=== PATIENT | male | born 1995 | race Caucasian/White ===

== ENCOUNTER 2017-03-20 14:52 | Inpatient (IN) | payer BC, OTHER ==
[~2017-03-20] VITALS: Ht 177.8 cm; Wt 65.5 kg
[2017-03-20] MEDS ORDERED: ONDANSETRON INJ 2 MG/ML 2 ML VIAL IV STA (15:31)
[2017-03-20] MEDS ORDERED: MoRPHine SULFATE 4 MG/ML 1 ML CARP\\VIAL IV STA ×2 (15:31→17:24)
[2017-03-20 15:59] LABS: URINE APPEARANCE CLEAR (CLEAR); URINE BILIRUBIN NEG (NEG); URINE COLOR YELLOW; URINE NITRITE NEG (NEG); URINE PH 5.5 (4.5-7.5); URINE SPECIFIC GRAVITY 1.023 (1.000-1.030); UROBILINOGEN NEG (NEG); ZZUR CULT IF INDIC CLEAN CATCH NO
[2017-03-20 16:02] LABS: MANUAL MICROSCOPIC REQUIRED? NO; REVIEW REQ? NO
--- NOTE | 2017-03-20 16:02 | EMERGENCY ROOM VISIT NOTE ---
History First contact with patient: 15:22 Chief Complaint: GROIN PAIN Stated Complaint: GROIN PAIN History of Present Illness The patient is a 21 year old male who presents to the Emergency Room via private vehicle accompanied by male with complaints of "groin pain". The patient states that for the past 2 weeks he has been experiencing right testicular discomfort that has been worsening. He states that today it acutely worsened going from a 6/10 to a 10/10. There has been associated vomiting today. He has never had this before. There is no history of renal calculi or kidney stones. He states that he has been recently sexually active, that this was with protection with a female. He notes that the nail does not have any symptoms. He does have associated fevers, chills, nausea and vomiting. There is no penile discharge. There is associated right flank/back pain as well. Review of Systems A complete 10-point Review of Systems was discussed with the patient, with pertinent positives and negatives listed in the History of Present Illness. All remaining Review of Systems questions can be considered negative unless otherwise specified. Past Medical/Surgical History Medical Problems: (1) Renal calculi No pertinent. Family History No pertinent. Social History Smoking Status: Never Smoker Pt. lives locally Current/Historical Medications Scheduled Ondasetron Odt (Zofran Odt), 4 MG SL Q6H Tamsulosin Hcl (Flomax), 0.4 MG PO DAILY Scheduled PRN Oxycodone Ir (Roxicodone Ir), 1-2 TAB PO Q4H PRN for Pain Physical Exam Vital Signs Date Time Temp Pulse Resp B/P (MAP) Pulse Ox O2 Delivery O2 Flow Rate FiO2 03/20/17 17:54 52 03/20/17 17:26 100 Room Air 03/20/17 17:10 54 18 155/92 100 Room Air 03/20/17 15:00 36.5 73 18 157/90 100 Room Air Physical Exam VITAL SIGNS - Vital signs and nursing notes were reviewed. Stable. Afebrile. GENERAL - 21-year-old male appearing his stated age who is in no acute distress. Communicates well with provider and answers questions appropriately. SKIN - Without rashes. HEAD - NC/AT. LUNGS - Chest wall symmetric without accessory muscle use, intercostals retractions, or central cyanosis. Normal vesicular breath sounds CTA B/L. No wheezes, rales, or rhonchi appreciated. CARDIAC - RRR with S1/S2. No murmur, rubs, or gallops appreciated. ABDOMEN - Abdominal contour normal without pulsations or visible masses. BS normoactive all four quadrants. R sided abd tenderness noted. No palpable masses , hepatosplenomegaly, or ascites noted. CVA tenderness on R noted. EXTREMITIES - No clubbing or peripheral cyanosis. No pretibial edema present. : Unremarkable genitalia exam. Medical Decision & Procedures ER Provider Diagnostic Interpretation: TESTICULAR ULTRASOUND HISTORY: Right testicular pain COMPARISON: None. FINDINGS: Right testis: 5.1 x 3.5 x 2.0 cm. There are no intratesticular masses. Normal color flow. No significant hydrocele. The epididymis is unremarkable. A few scattered microliths. Left testis: 5.5 x 2.0 x 2.8 cm. There are no intratesticular masses. Normal color flow. No hydrocele. The epididymis is unremarkable. A few scattered microliths. IMPRESSION: Bilateral testicular microlithiasis. Otherwise, normal testes. Electronically signed by: Trino Agustin M.D. 03/20/2017 4:37 PM Dictated Date/Time: 03/20/2017 4:35 PM ABDOMEN AND PELVIS CT WITHOUT CONTRAST CT DOSE: 483.45 mGy.cm HISTORY: R flank pain and R testicular pain TECHNIQUE: Multiaxial CT images of the abdomen and pelvis were performed without the use of intravenous and oral contrast according to the standard department stone protocol. A dose lowering technique was utilized adhering to the principles of ALARA. COMPARISON STUDY: None. FINDINGS: Mild right hydroureteronephrosis secondary to an obstructing 6 mm stone within the distal right ureter. The stone is located just beyond the level of the iliac vessels. Right periureteral edema is likely reactive. No renal calculi. Normal bladder. Suboptimal evaluation for bowel pathology due to the lack of intravenous and oral contrast. However, there is no definite bowel wall thickening or obstruction. The visualized appendix is top normal in diameter measuring 6 mm. No periappendiceal fat stranding to suggest acute appendicitis. The lung bases are clear. No fractures within the visualized osseous structures. The unenhanced liver, spleen, adrenal glands, and pancreas are unremarkable. No retroperitoneal lymphadenopathy. Normal gallbladder. IMPRESSION: A 6 mm obstructing stone within the distal right ureter resulting in mild right hydroureteronephrosis. Electronically signed by: Trino Agustin M.D. 03/20/2017 5:11 PM Dictated Date/Time: 03/20/2017 5:07 PM Laboratory Results 03/20/17 15:40 Red Blood Count 4.30, Mean Corpuscular Volume 89.8, Mean Corpuscular Hemoglobin 32.3, Mean Corpuscular Hemoglobin Concent 36.0, Neutrophils (%) (Auto) 74.0, Lymphocytes (%) (Auto) 19.6, Monocytes (%) (Auto) 5.7, Eosinophils (%) (Auto) 0.2, Basophils (%) (Auto) 0.1, Neutrophils # (Auto) 10.28, Lymphocytes # (Auto) 2.73, Monocytes # (Auto) 0.80, Eosinophils # (Auto) 0.03, Basophils # (Auto) 0.02 03/20/17 15:40 Test 03/20/17 15:40 White Blood Count 13.92 K/uL (4.8-10.8) Red Blood Count 4.30 M/uL (4.7-6.1) Hemoglobin 13.9 g/dL (14.0-18.0) Hematocrit 38.6 % (42-52) Mean Corpuscular Volume 89.8 fL (80-100) Mean Corpuscular Hemoglobin 32.3 pg (25-34) Mean Corpuscular Hemoglobin Concent 36.0 g/dl (32-36) Platelet Count 250 K/uL (130-400) Neutrophils (%) (Auto) 74.0 % Lymphocytes (%) (Auto) 19.6 % Monocytes (%) (Auto) 5.7 % Eosinophils (%) (Auto) 0.2 % Basophils (%) (Auto) 0.1 % Neutrophils # (Auto) 10.28 K/uL (1.4-6.5) Lymphocytes # (Auto) 2.73 K/uL (1.2-3.4) Monocytes # (Auto) 0.80 K/uL (0.11-0.59) Eosinophils # (Auto) 0.03 K/uL (0-0.5) Basophils # (Auto) 0.02 K/uL (0-0.2) Immature Granulocyte % (Auto) 0.4 % Immature Granulocyte # (Auto) 0.06 K/uL (0.00-0.02) Urine Color YELLOW Urine Appearance CLEAR (CLEAR) Urine pH 5.5 (4.5-7.5) Urine Specific [place] 1.023 (1.000-1.030) Urine Protein TRACE (NEG) Urine Glucose (UA) NEG (NEG) Urine Ketones NEG (NEG) Urine Occult Blood 2+ (NEG) Urine Nitrite NEG (NEG) Urine Bilirubin NEG (NEG) Urine Urobilinogen NEG (NEG) Urine Leukocyte Esterase NEG (NEG) Urine WBC (Auto) 1-5 /hpf (0-5) Urine RBC (Auto) >30 /hpf (0-4) Urine Hyaline Casts (Auto) 1-5 /lpf (0-5) Urine Epithelial Cells (Auto) 5-10 /lpf (0-5) Urine Bacteria (Auto) NEG (NEG) Anion Gap 11.0 mmol/L (3-11) Est Creatinine Clear Calc Drug Dose 93.3 ml/min Estimated GFR () 104.1 Estimated GFR (Non- 89.8 BUN/Creatinine Ratio 13.7 (10-20) Calcium Level 9.7 mg/dl (8.5-10.1) Total Bilirubin 0.3 mg/dl (0.2-1) Aspartate Amino Transf (AST/SGOT) 13 U/L (15-37) Alanine Aminotransferase (ALT/SGPT) 17 U/L (12-78) Alkaline Phosphatase 131 U/L (45-117) Total Protein 7.9 gm/dl (6.4-8.2) Albumin 4.7 gm/dl (3.4-5.0) Globulin 3.2 gm/dl (2.5-4.0) Albumin/Globulin Ratio 1.5 (0.9-2) Medications Administered Medications (Trade) Dose Ordered Sig/Gisel Route Start Time Stop Time Status Last Admin Dose Admin Morphine Sulfate (MoRPHine SULFATE INJ) 4 mg NOW STAT IV 03/20/17 15:31 03/20/17 15:32 DC 03/20/17 15:58 4 MG Ondansetron HCl (Zofran Inj) 4 mg NOW STAT IV 03/20/17 15:31 03/20/17 15:32 DC 03/20/17 15:31 4 MG Morphine Sulfate (MoRPHine SULFATE INJ) 4 mg NOW STAT IV 03/20/17 17:24 03/20/17 17:26 DC 03/20/17 17:24 4 MG Tamsulosin HCl (Flomax Cap) 0.4 mg NOW STAT PO 03/20/17 17:24 03/20/17 17:26 DC 03/20/17 17:43 0.4 MG Sodium Chloride 1,000 ml @ 999 mls/hr Q1H1M STAT IV 03/20/17 18:08 03/20/17 19:08 DC 03/20/17 18:08 999 MLS/HR Ketorolac Tromethamine (Toradol Inj) 30 mg NOW STAT IV 03/20/17 18:08 03/20/17 18:10 DC 03/20/17 18:08 30 MG Medical Decision Patient was seen and evaluated as above. He presents to us today with right testicular pain and flank pain of the same side. Testicular ultrasound was obtained and found to be essentially negative for emergent process. IV access was initiated, and the above workup was performed. CT scan was obtained of the abdomen and pelvis and reveals a 6 mm stone on the right. Mild hydroureteronephrosis. He was given morphine and Zofran for pain and nausea. I discussed the case with the attending physician, as well as with the patient regarding whether or not he prefers to stay or go home. He initially chose to be discharged home with oxycodone, Flomax as well as antinausea medication but then decided that he should stay secondary to his amount of pain and vomiting state. I believe it is reasonable to stay. I discussed the case with the hospitalist and subsequently Dr. Loredo the urologist. He recommended Toradol , hydration, Flomax and nothing by mouth after midnight in the event that he may need surgical intervention. Please refer to further documentation regarding the patient's stay. There is moderate leukocytosis, but no evidence of kidney or liver failure. Mild anemia noted. No evidence of infected stone. Urine reveals blood but no evidence of infection. In evaluation treatment this patient the following differential diagnoses were entertained: Testicular torsion, STD/STI, stone, among others. Impression Primary Impression: Ureteral calculus, right Additional Impression: Anemia Departure Information Dispostion Home / Self-Care Condition GOOD Prescriptions Ondasetron Odt (ZOFRAN ODT) 4 Mg Tab 4 MG SL Q6H for Nausea, #20 TAB Prov: Supa Castle PA-C 03/20/17 Tamsulosin Hcl (FLOMAX) 0.4 Mg Cap 0.4 MG PO DAILY for 14 Days, #14 CAP Prov: Supa Castle PA-C 03/20/17 Oxycodone Ir (Roxicodone Ir) 5 Mg Tab 1-2 TAB PO Q4H Y for Pain, #24 TAB For Initial Treatment Prov: Supa Castle PA-C 03/20/17 Referrals No Doctor, Assigned (PCP) Andrew Loredo M.D. Patient Instructions My [facility] Additional Instructions You have been treated in the Emergency Department today for a Kidney Stone ( Nephrolithiasis). You have received pain medicine in the emergency department which impairs your ability to operate a vehicle. It is illegal for you to drive after receiving these medicines. You have been prescribed Oxy IR to be used for pain control. This is a narcotic medication. You cannot drive or consume alcohol while on this medicine. This medicine should only be used for pain that cannot be controlled with over-the- counter pain medicines. You have been prescribed Zofran to be used for any nausea or vomiting. Take as prescribed. You have been prescribed Flomax 0.4 mg to be taken ONCE daily. This medicine has been prescribed as it can help relax the smooth muscles of the urinary tract increasing transit time of the kidney stone. For pain control, you can use the following [id number] medicines: - Regular strength (325mg/tab) Tylenol (acetaminophen) 2 tabs every 4-6 hours as needed. Do not exceed 12 tablets in a 24 hour period. Avoid taking more than 3 grams (3000 mg) of Tylenol per day. This includes any other sources of acetaminophen you may take on a regular basis. - Regular strength (200 mg/tab) Advil (ibuprofen) 1-2 tabs every 4-6 hours as needed. Do not exceed a dose of 3200 mg per day. You have been provided a strainer and specimen collection cup. You should strain your urine to collect any passed stones. Your stones can be placed into the specimen cup and taken to your Urologist for further evaluation. You have been provided the contact information for the on-call Urologist. You should contact the Urologist's office tomorrow to establish a follow-up appointment from today's Emergency Department visit. Return to the Emergency Department if your symptoms persist despite the treatment plan outlined above or if you develop the following symptoms: intractable pain, fever, chills, or large amounts of blood in your urine. TESTICULAR ULTRASOUND HISTORY: Right testicular pain COMPARISON: None. FINDINGS: Right testis: 5.1 x 3.5 x 2.0 cm. There are no intratesticular masses. Normal color flow. No significant hydrocele. The epididymis is unremarkable. A few scattered microliths. Left testis: 5.5 x 2.0 x 2.8 cm. There are no intratesticular masses. Normal color flow. No hydrocele. The epididymis is unremarkable. A few scattered microliths. IMPRESSION: Bilateral testicular microlithiasis. Otherwise, normal testes. Electronically signed by: Trino Agustin M.D. 03/20/2017 4:37 PM Dictated Date/Time: 03/20/2017 4:35 PM ABDOMEN AND PELVIS CT WITHOUT CONTRAST CT DOSE: 483.45 mGy.cm HISTORY: R flank pain and R testicular pain TECHNIQUE: Multiaxial CT images of the abdomen and pelvis were performed without the use of intravenous and oral contrast according to the standard department stone protocol. A dose lowering technique was utilized adhering to the principles of ALARA. COMPARISON STUDY: None. FINDINGS: Mild right hydroureteronephrosis secondary to an obstructing 6 mm stone within the distal right ureter. The stone is located just beyond the level of the iliac vessels. Right periureteral edema is likely reactive. No renal calculi. Normal bladder. Suboptimal evaluation for bowel pathology due to the lack of intravenous and oral contrast. However, there is no definite bowel wall thickening or obstruction. The visualized appendix is top normal in diameter measuring 6 mm. No periappendiceal fat stranding to suggest acute appendicitis. The lung bases are clear. No fractures within the visualized osseous structures. The unenhanced liver, spleen, adrenal glands, and pancreas are unremarkable. No retroperitoneal lymphadenopathy. Normal gallbladder. IMPRESSION: A 6 mm obstructing stone within the distal right ureter resulting in mild right hydroureteronephrosis. Electronically signed by: Trino Agustin M.D. 03/20/2017 5:11 PM Problem Qualifiers
[2017-03-20 16:09] LABS: BASO % 0.1 %; BASO ABS # 0.02 K/uL (0-0.2); COMPLETE YES; EOS % 0.2 %; HEMATOCRIT 38.6 % (42-52); IG% 0.4 %; LYMPH % 19.6 %; LYMPH ABS # 2.73 K/uL (1.2-3.4); MEAN CELL VOLUME 89.8 fL (80-100); MEAN CORPUSCULAR HEMOGLOBIN 32.3 pg (25-34); MONO % 5.7 %; PLATELET COUNT 250 K/uL (130-400); WHITE BLOOD COUNT 13.92 K/uL (4.8-10.8)
[2017-03-20 16:24] LABS: BUN/CREATININE RATIO 13.7 (10-20); CALCIUM 9.7 mg/dl (8.5-10.1); CREATININE 1.15 mg/dl (0.60-1.40); POTASSIUM 3.5 mmol/L (3.5-5.1)
[2017-03-20 16:27] LABS: ALB/GLOB RATIO 1.5 (0.9-2)
--- NOTE | 2017-03-20 16:38 | DIAGNOSTIC IMAGING REPORT ---
TESTICULAR ULTRASOUND HISTORY: Right testicular pain COMPARISON: None. FINDINGS: Right testis: 5.1 x 3.5 x 2.0 cm. There are no intratesticular masses. Normal color flow. No significant hydrocele. The epididymis is unremarkable. A few scattered microliths. Left testis: 5.5 x 2.0 x 2.8 cm. There are no intratesticular masses. Normal color flow. No hydrocele. The epididymis is unremarkable. A few scattered microliths. IMPRESSION: Bilateral testicular microlithiasis. Otherwise, normal testes. Electronically signed by: Trino Agustin M.D. 03/20/2017 4:37 PM Dictated Date/Time: 03/20/2017 4:35 PM
--- NOTE | 2017-03-20 17:12 | DIAGNOSTIC IMAGING REPORT ---
ABDOMEN AND PELVIS CT WITHOUT CONTRAST CT DOSE: 483.45 mGy.cm HISTORY: R flank pain and R testicular pain TECHNIQUE: Multiaxial CT images of the abdomen and pelvis were performed without the use of intravenous and oral contrast according to the standard department stone protocol. A dose lowering technique was utilized adhering to the principles of ALARA. COMPARISON STUDY: None. FINDINGS: Mild right hydroureteronephrosis secondary to an obstructing 6 mm stone within the distal right ureter. The stone is located just beyond the level of the iliac vessels. Right periureteral edema is likely reactive. No renal calculi. Normal bladder. Suboptimal evaluation for bowel pathology due to the lack of intravenous and oral contrast. However, there is no definite bowel wall thickening or obstruction. The visualized appendix is top normal in diameter measuring 6 mm. No periappendiceal fat stranding to suggest acute appendicitis. The lung bases are clear. No fractures within the visualized osseous structures. The unenhanced liver, spleen, adrenal glands, and pancreas are unremarkable. No retroperitoneal lymphadenopathy. Normal gallbladder. IMPRESSION: A 6 mm obstructing stone within the distal right ureter resulting in mild right hydroureteronephrosis. Electronically signed by: Trino Agustin M.D. 03/20/2017 5:11 PM Dictated Date/Time: 03/20/2017 5:07 PM
[2017-03-20] MEDS ORDERED: OXYCODONE IR HOME PACK PO STA (17:24)
[2017-03-20] MEDS ORDERED: TAMSULOSIN HCL 0.4 MG CAP PO STA (17:24)
[2017-03-20] MEDS ORDERED: ONDANSETRON HOME PACK 4MG OD TAB PO STA (17:24)
[2017-03-20] MEDS ORDERED: OXYC1TAB3 PO (17:28)
[2017-03-20] MEDS ORDERED: ONDA4TAB10 SL (17:28)
[2017-03-20] MEDS ORDERED: TAMS0.4C38 PO (17:28)
[2017-03-20] MEDS ORDERED: SODIUM CHLORIDE 0.9% 1000ML 1,000 ML IV STA (18:08)
[2017-03-20] MEDS ORDERED: KETOROLAC TROMETHAMINE 30 MG/ML VIAL IV STA (18:08)
[2017-03-20] MEDS ORDERED: ONDANSETRON INJ 2 MG/ML 2 ML VIAL IV PRN (18:45)
[2017-03-20] MEDS ORDERED: ACETAMINOPHEN 325 MG TAB PO PRN (18:45)
[2017-03-20] MEDS ORDERED: MoRPHine SULFATE 4 MG/ML 1 ML CARP\\VIAL IV PRN (19:15)
[2017-03-20 19:51] VITALS: O2SAT 97
[2017-03-20 20:00] VITALS: BP 143/77; PULSE 101; TEMP 36.6; Ht 177.8 cm; Wt 65.5 kg
--- NOTE | 2017-03-20 20:36 | History and Physical ---
History & Physical Date & Time of Service: Mar 20, 2017 ~ 18:00 Chief Complaint: Groin and Right Sided Back Pain Primary Care Physician: No Doctor, Assigned History of Present Illness 21 year old male who presents to the ED with right sided groin and back pain. Patient reports his symptoms began about 2 weeks ago however were very mild. Pain acutely worsened today. Patient reports his pain #9/10 at its worst. He also had nausea and vomiting. He denies hematemesis and coffee ground emesis. No abdominal pain. He had episodes of chills and hot flashes, no fevers. He denies any urinary symptoms, no hematuria. No chest pain or shortness of breath. He denies lightheadedness, dizziness, diaphoresis, and syncopal events. In the ED, patient had a CT scan that showed a 6 mm obstructing stone within the distal right ureter resulting in mild right hydroureteronephrosis. He was given IVF, IV Zofran, morphine, Flomax, and Toradol. Past Medical/Surgical History No Significant Past Medical or Surgical History Family History negative for CAD, DM, or CVA Social History Smoking Status: Never Smoker Alcohol Use: occasionally Drug Use: none Multi-Drug Resistant Organisms History of MDRO: No Allergies Coded Allergies: No Known Allergies (Unverified , 03/20/17) Home Medications Scheduled Ondasetron Odt (Zofran Odt), 4 MG SL Q6H Tamsulosin Hcl (Flomax), 0.4 MG PO DAILY Scheduled PRN Oxycodone Ir (Roxicodone Ir), 1-2 TAB PO Q4H PRN for Pain Review of Systems ROS per HPI, all other systems reviewed and negative Physical Exam Vital Signs Date Time Temp Pulse Resp B/P (MAP) Pulse Ox O2 Delivery O2 Flow Rate FiO2 03/20/17 19:51 65 16 119/69 97 03/20/17 17:54 52 03/20/17 17:26 100 Room Air 03/20/17 17:10 54 18 155/92 100 Room Air 03/20/17 15:00 36.5 73 18 157/90 100 Room Air General Appearance: WD/WN, no apparent distress Head: normocephalic, atraumatic Eyes: normal inspection, EOMI, sclerae normal ENT: hearing grossly normal, + pertinent finding (mucous membranes moist) Neck: supple, no JVD, trachea midline Respiratory/Chest: lungs clear, normal breath sounds, no respiratory distress Cardiovascular: regular rate, rhythm, no edema, normal peripheral pulses Abdomen/GI: normal bowel sounds, soft, no organomegaly, + tenderness (mild, right suprapubic/groin) Extremities/Musculoskelatal: normal inspection, no calf tenderness, normal capillary refill Neurologic/Psych: no motor/sensory deficits, alert, normal mood/affect, oriented x 3 Skin: normal color, warm/dry Diagnostics Laboratory Results Results Past 24 Hours Test 03/20/17 15:40 Range/Units White Blood Count 13.92 4.8-10.8 K/uL Red Blood Count 4.30 4.7-6.1 M/uL Hemoglobin 13.9 14.0-18.0 g/dL Hematocrit 38.6 42-52 % Mean Corpuscular Volume 89.8 80-100 fL Mean Corpuscular Hemoglobin 32.3 25-34 pg Mean Corpuscular Hemoglobin Concent 36.0 32-36 g/dl Platelet Count 250 130-400 K/uL Neutrophils (%) (Auto) 74.0 % Lymphocytes (%) (Auto) 19.6 % Monocytes (%) (Auto) 5.7 % Eosinophils (%) (Auto) 0.2 % Basophils (%) (Auto) 0.1 % Neutrophils # (Auto) 10.28 1.4-6.5 K/uL Lymphocytes # (Auto) 2.73 1.2-3.4 K/uL Monocytes # (Auto) 0.80 0.11-0.59 K/uL Eosinophils # (Auto) 0.03 0-0.5 K/uL Basophils # (Auto) 0.02 0-0.2 K/uL Immature Granulocyte % (Auto) 0.4 % Immature Granulocyte # (Auto) 0.06 0.00-0.02 K/uL Urine Color YELLOW Urine Appearance CLEAR CLEAR Urine pH 5.5 4.5-7.5 Urine Specific [place] 1.023 1.000-1.030 Urine Protein TRACE NEG Urine Glucose (UA) NEG NEG Urine Ketones NEG NEG Urine Occult Blood 2+ NEG Urine Nitrite NEG NEG Urine Bilirubin NEG NEG Urine Urobilinogen NEG NEG Urine Leukocyte Esterase NEG NEG Urine WBC (Auto) 1-5 0-5 /hpf Urine RBC (Auto) >30 0-4 /hpf Urine Hyaline Casts (Auto) 1-5 0-5 /lpf Urine Epithelial Cells (Auto) 5-10 0-5 /lpf Urine Bacteria (Auto) NEG NEG Sodium Level 139 136-145 mmol/L Potassium Level 3.5 3.5-5.1 mmol/L Chloride Level 102 98-107 mmol/L Carbon Dioxide Level 26 21-32 mmol/L Anion Gap 11.0 3-11 mmol/L Blood Urea Nitrogen 16 7-18 mg/dl Creatinine 1.15 0.60-1.40 mg/dl Est Creatinine Clear Calc Drug Dose 93.3 ml/min Estimated GFR () 104.1 Estimated GFR (Non- 89.8 BUN/Creatinine Ratio 13.7 10-20 Random Glucose 179 70-99 mg/dl Calcium Level 9.7 8.5-10.1 mg/dl Total Bilirubin 0.3 0.2-1 mg/dl Aspartate Amino Transf (AST/SGOT) 13 15-37 U/L Alanine Aminotransferase (ALT/SGPT) 17 12-78 U/L Alkaline Phosphatase 131 45-117 U/L Total Protein 7.9 6.4-8.2 gm/dl Albumin 4.7 3.4-5.0 gm/dl Globulin 3.2 2.5-4.0 gm/dl Albumin/Globulin Ratio 1.5 0.9-2 Diagnostic Radiology TESTICULAR US IMPRESSION: Bilateral testicular microlithiasis. Otherwise, normal testes. CT ABD/PELVIS IMPRESSION: A 6 mm obstructing stone within the distal right ureter resulting in mild right hydroureteronephrosis. Impression Assessment and Plan RIGHT OBSTRUCTING URETERAL CALCULI WITH HYDROURETERONEPHROSIS - admit to med/surg - patient presenting with right sided back and groin pain x 2 weeks that acutely worsened today; CT scan showing a 6 mm obstructing stone within the distal right ureter with mild right hydroureteronephrosis - no prior hx of renal calculi - renal functions WNL - around the clock Toradol, PRN morphine and Zofran - clear liquids for now due to nausea - IVF - strain urine - NPO after midnight for possible procedure - urology consulted, input appreciated DVT PROPHYLAXIS - SCDs due to possible procedure DISPO - In my clinical judgment this beneficiary meets acute admission criteria, established by [facility], that includes being hospitalized through two midnights. - Has followed at [facility] in the past, will let us know if he wishes to follow there for follow up. Attending Physician Dr. Travis Addendum I have seen and examined the patient with [employer] Danika Ortiz and agree with the assessment and plan as above and would like to comment that this is a 21 year male patient with right sided back and groin pain x 2 weeks; CT scan showing a 6 mm obstructing stone within the distal right ureter with mild right hydroureteronephrosis. Patient is comfortable during my psychical exam with no acute complaints of pain or tenderness. His testicular pain is likely referred pain from the kidney stone as the testicular ultrasound with few scattered bilateral [place]. [place] [address] without evidence of infection. Continue IV fluids and pain control. NPO after midnight for further urology intervention if needed. Serum potassium 3.5, 40 meq PO potassium ordered VTE Prophylaxis VTE Risk Assessment Done? Y/N: Yes Risk Level: Low
[2017-03-20] MEDS: SODIUM CHLORIDE 0.9% 1000ML 1,000 ML IV SCH (21:28)
[2017-03-20] MEDS: KETOROLAC TROMETHAMINE 15 MG/ML VIAL IV SCH (21:29)
[2017-03-20] MEDS ORDERED: POTASSIUM CHLORIDE 20 MEQ TABCR PO STA (21:53)
[2017-03-20] MEDS ORDERED: INFLUENZA VIRUS QUAD VACCINE 0.5 ML SYR IM. ONE (22:00)
[2017-03-20] MEDS ORDERED: INFLUENZA ADMINISTRATION CHARGE ONE (22:00)
[2017-03-20 23:15] VITALS: BP_SYST 127; BP_SYST 94; BP_DIAS 72; BP_DIAS 73; PULSE 60; TEMP 36.8; O2SAT 99
[2017-03-21] MEDS: KETOROLAC TROMETHAMINE 15 MG/ML VIAL IV SCH ×2 (03:30→08:38)
[2017-03-21] MEDS: SODIUM CHLORIDE 0.9% 1000ML 1,000 ML IV SCH ×2 (03:30→10:21)
[2017-03-21 07:58] VITALS: BP 112/70; PULSE 71; TEMP 36.6; O2SAT 97
[2017-03-21] MEDS ORDERED: TAMSULOSIN HCL 0.4 MG CAP PO SCH (09:00)
[2017-03-21 09:53] VITALS: BP 112/70; PULSE 71; TEMP 36.6; O2SAT 97
--- NOTE | 2017-03-21 10:41 | Urology Consultation ---
History General Date of Service: Mar 21, 2017. Primary Care Physician: No Doctor, Assigned Pt seen a urologist before?: No History of Present Illness Healthy 21-year-old male with 2 weeks of right flank pain Started in the upper back has progressed to the right testis and groin No fevers, chills No dysuria Some associated nausea and vomiting Resented to the emergency room last night with intractable right groin and testicle pain Subsequent CT: Right distal ureteral calculus with mild hydronephrosis ( approximately 3-4 cm above the UVJ) He reports he feels drastically improved today No pain No nausea No stone passage yet Imaging Imaging: CT, Ultrasound Laboratory Labs were reviewed and are within normal limits unless listed below. Labs are available in the chart and at [facility] Past History no pertinent history Pt had a problem w anesthesia?: No Past Surgical History: no surgical history Family History No significant family history Social History Hx Tobacco Use In Past Year?: No History of MDRO No Allergies Coded Allergies: No Known Allergies (Unverified , 03/20/17) Medications Home Medications: Home Meds and Scripts Medications Dose Route/Sig Max Daily Dose Days Date Category Dose Instructions Zofran Odt (Ondansetron HCl) 4 Mg Tab 4 Mg SL Q6H 03/20/17 Rx Flomax (Tamsulosin Hcl) 0.4 Mg Cap 0.4 Mg PO DAILY 14 03/20/17 Rx Roxicodone Ir (Oxycodone HCl) 5 Mg Tab 1-2 Tab PO Q4H PRN 03/20/17 Rx For Initial Treatment Inpatient Medications: Current Inpatient Medications Medications (Trade) Dose Ordered Sig/Gisel Route Start Time Stop Time Status Last Admin Dose Admin Acetaminophen (Tylenol Tab) 650 mg Q4H PRN PO 03/20/17 18:45 04/19/17 18:44 Ondansetron HCl (Zofran Inj) 4 mg Q6H PRN IV 03/20/17 18:45 04/19/17 18:44 Sodium Chloride 1,000 ml @ 200 mls/hr Q5H IV 03/20/17 19:15 04/19/17 19:14 03/21/17 03:30 125 MLS/HR Tamsulosin HCl (Flomax Cap) 0.4 mg QAM PO 03/21/17 09:00 04/20/17 08:59 03/21/17 08:37 0.4 MG Ketorolac Tromethamine (Toradol Inj) 15 mg Q6H IV 03/20/17 22:00 03/25/17 21:59 03/21/17 08:38 15 MG Morphine Sulfate (MoRPHine SULFATE INJ) 4 mg Q4H PRN IV 03/20/17 19:15 04/03/17 19:14 Review of Systems Review of Systems Constitutional: No see HPI, No fever, No chills, No frequent headaches, No weight loss, No problem reported Eyes: No see HPI, No blurred vision, No double vision, No eye pain, No loss of night vision, No problem reported Neurological: No see HPI, No dizzy, No passing out, No numbness/tingling, No seizures, No problem reported Endocrine: No see HPI, No excessive thirst, No too hot, No too cold, No tired/ sluggish, No problem reported Gastrointestinal: + abdominal pain, + nausea Cardiovascular: No see HPI, No heart murmur, No chest pain, No angina, No irregular heartbeat, No palpitations, No swelling ankles/feet, No problem reported Respiratory: No see HPI, No shortness of breath, No wheezing, No coughing up blood, No chronic cough, No problem reported Skin: No see HPI, No rash, No boils, No dry skin, No problem reported Musculoskeletal: No see HPI, No joint pain, No neck pain, No back pain, No arthritis, No problem reported Blood / Lymphatic: No see HPI, No bleed easily, No bruise easily, No swollen glands, No problem reported Ears / Nose / Throat: No see HPI, No hearing loss, No sinus, No hoarse voice, No sore throat, No problem reported Psychologic / Mental: No see HPI, No nervous, No trouble remembering, No difficulty sleeping, No problem reported Male : + kidney stones All Other Systems: Reviewed and Negative Physical Exam Vital Signs: Vital Signs Past 12 Hours Date Time Temp Pulse Resp B/P (MAP) Pulse Ox O2 Delivery O2 Flow Rate FiO2 03/21/17 09:53 36.6 71 16 97 Room Air 03/21/17 07:58 36.6 71 16 112/70 (84) 97 Room Air 03/21/17 07:20 Room Air 03/20/17 23:25 Room Air 03/20/17 23:15 36.8 60 16 94/73 (80) 99 Room Air 127/72 (90) Physical Exam: General Appearance: WD/WN, no apparent distress Eyes: bilateral eyes normal inspection ENT: hearing grossly normal Neck: supple, no adenopathy Respiratory/Chest: no respiratory distress, no accessory muscle use Cardiovascular: regular rate, rhythm, no edema Gastrointestinal: Abdomen: normal abdomen Bladder: normal bladder Renal: normal renal Extremities: normal inspection, no pedal edema, no calf tenderness Neurologic/Psychiatric: alert, normal mood/affect, oriented x 3 Skin: normal color, warm/dry Lymphatic: no adenopathy Assessment & Plan Assessment & Plan Distal right ureteral calculus (6 mm) - Discussed and reviewed his diagnosis and options for management We have offered observation; immediate cystoscopy with ureteroscopy, laser lithotripsy, and stent; or attempted passage with planned ESWL at a later stage I have explained the ESWL will not be available for nearly 2 weeks secondary to the upcoming holiday Given his a symptom manic status currently, he prefers observation with short- term outpatient follow-up Will plan for DC home today Our office will call him to arrange for follow-up on Thursday
[2017-03-21] MEDS ORDERED: OXYC-57 PO (10:59)
[2017-03-21] MEDS ORDERED: TAMS0.4C38 PO (10:59)
[2017-03-21] MEDS ORDERED: ONDA4TAB10 SL (10:59)
[2017-03-21] MEDS ORDERED: NAPR500T3 PO (10:59)
--- NOTE | 2017-03-21 11:09 | Discharge Summary ---
Discharge Summary Date of Service Mar 21, 2017. Discharge Summary Admission Date: Mar 20, 2017 at 18:35 Discharge Date: Mar 21, 2017 Discharge Disposition: Home Principal Diagnosis: L ureteral stone -6mm (obstructing) Procedures: None. Vaccinations: Flu declined. Consultations: Urology, Dr. Andrew Loredo Pending Studies/Follow-Up: see instructions below. Medication Reconciliation New Medications: Naproxen (Naproxen) 500 Mg Tab 1 TAB PO BID PRN for moderate pain for 7 Days, #20 TAB 1 Refill Oxycodone/Acetaminophen 5MG/325MG (Percocet 5MG/325MG) Tab 1 TAB PO QID PRN for severe pain for 7 Days, #20 TAB PAIN Changed Medications: Ondasetron Odt (Zofran Odt) 4 Mg Tab 4 MG SL Q8H PRN for Nausea or Vomiting, #20 TAB (Changed from: Q6H) Continued Medications: Tamsulosin Hcl (Flomax) 0.4 Mg Cap 0.4 MG PO DAILY for 14 Days, #14 CAP (This prescription has been renewed) Discontinued Medications: Oxycodone Ir (Roxicodone Ir) 5 Mg Tab 1-2 TAB PO Q4H PRN for Pain, #24 TAB For Initial Treatment Admission Information HPI (per Admitting provider): 21 year old male who presents to the ED with right sided groin and back pain. Patient reports his symptoms began about 2 weeks ago however were very mild. Pain acutely worsened today. Patient reports his pain #9/10 at its worst. He also had nausea and vomiting. He denies hematemesis and coffee ground emesis. No abdominal pain. He had episodes of chills and hot flashes, no fevers. He denies any urinary symptoms, no hematuria. No chest pain or shortness of breath. He denies lightheadedness, dizziness, diaphoresis, and syncopal events. In the ED, patient had a CT scan that showed a 6 mm obstructing stone within the distal right ureter resulting in mild right hydroureteronephrosis. He was given IVF, IV Zofran, morphine, Flomax, and Toradol. Physical Exam (per Admitting): General Appearance: WD/WN, no apparent distress Head: normocephalic, atraumatic Eyes: normal inspection, EOMI, sclerae normal ENT: hearing grossly normal, + pertinent finding (mucous membranes moist) Neck: supple, no JVD, trachea midline Respiratory/Chest: lungs clear, normal breath sounds, no respiratory distress Cardiovascular: regular rate, rhythm, no edema, normal peripheral pulses Abdomen/GI: normal bowel sounds, soft, no organomegaly, + tenderness (mild, right suprapubic/groin) Extremities/Musculoskelatal: normal inspection, no calf tenderness, normal capillary refill Neurologic/Psych: no motor/sensory deficits, alert, normal mood/affect, oriented x 3 Skin: normal color, warm/dry Hospital Course 21 yo M presented with acute R-sided flank pain with radiation into R testicle. CT a/p revealed a 6mm ureteral stone. Testicular u/s was also performed with no acute abnormality noted. The patient was admitted to the floor and placed on IVF, flomax and Toradol. UA was negative for bacteria. He did well overnight and was seen by Urology in the morning. Dr. Gorge Loredo discussed with him his options for treatment including observation, immediate cystoscopy with ureteroscopy, laser lithotripsy, and stent, or attempted passage with planned ESWL at a later stage. The patient was apprised that with the upcoming , ESWL may not be available for two weeks. He verbalized understanding and opted for observation at this point. He was given instruction on how to strain his urine and has a follow-up appointment with Urology on Thursday (two days from now). Upon discharge he was afebrile and hemodynamically stable and physical exam was unremarkable for any flank pain or abdominal pain and was otherwise normal. He was ambulatory and tolerating PO. He was discharged in stable condition. Total time spent on discharge = 60 minutes This includes examination of the patient, discharge planning, medication reconciliation, and communication with other providers. Discharge Instructions [facility] [address] [place] [address] Discharge Medical Patient Name: Jean Quintana Unit Number: [id number] Date of : 1995 Patient Status: Admitted Inpatient Attending Doctor: Gloria Alejandra DO DI: Medical v4 Discharge Instructions Date of Service Mar 21, 2017. Admission Reason for Admission: Renal Calculi Discharge Discharge Diagnosis / Problem: Ureteral calculi Discharge Goals Goal(s): Prevent Disease Progression Activity Recommendations Activity Limitations: per Instructions/Follow-up section . Instructions / Follow-Up Instructions / Follow-Up Please take all medications as instructed. You will need to take the TAMSULOSIN daily until the stone passes and then as directed by Urology. All other medications are for symptoms as needed only. Do not use OTC medications while taking the prescription pain medications. Please follow-up with Urology as instructed on Thursday. Their office staff should be calling you to set this up. Please strain all urine as instructed. It was a pleasure taking care of you! Call if you have any questions or problems. You can reach [facility] at [facility] 24 hours a day by calling [phone]. Take care of yourself. Gloria Alejandra DO [facility] Current Hospital Diet Patient's current hospital diet: Regular Diet Discharge Diet Recommended Diet: Regular Diet Procedures Procedures Performed: None. Pending Studies Studies pending at discharge: no Medical Emergencies . Who to Call and When: Medical Emergencies: If at any time you feel your situation is an emergency, please call 911 immediately. . Non-Emergent Contact Non-Emergency issues call your: Primary Care Provider . . "Provider Documentation" section prepared by Gloria Alejandra. . VTE Core Measure Inpt VTE Proph given/why not?: Treatment not indicated [place] Drug Monitoring Program Search Results: patient reviewed within database, no issues identified Additional Copies To Lori Peacock D.O.
== END 2017-03-21 12:13 | disposition home or self-care (01) | DRG 694 ==
LOC: C.EDB 14:53 → C.MSW 18:35 → ENRESERV 19:15
PROVIDERS: ADMIT Hospitalist; ATTEND Hospitalist
DX: N20.1 Calculus of ureter (principal); D64.9 Anemia, unspecified